=== PATIENT | female | born 1960 | race Caucasian/White ===

== ENCOUNTER 2024-08-29 04:22 | Day surgery (SDC) | payer OTHER ==
[2024-08-26 13:19] VITALS: BMI 25.5
[2024-08-29] MEDS ORDERED: MIDAZOLAM HCL 2 MG/2 ML SINGLE DOSE VIAL ONE (07:14)
[2024-08-29] MEDS ORDERED: PROPOFOL 20 ML ONE (07:14)
[2024-08-29] MEDS ORDERED: oxyCODONE HCL 5 MG TABLET PO PRN (07:25)
[2024-08-29] MEDS ORDERED: ONDANSETRON 4 MG/2 ML VIAL IVPUSH PRN (07:25)
[2024-08-29] MEDS ORDERED: ACETAMINOPHEN 325 MG TABLET (FP) PO PRN (07:25)
[2024-08-29] MEDS ORDERED: LACTATED RINGERS SOLUTION 1,000 ML IV SCH (07:30)
[2024-08-29] MEDS: ceFAZolin SODIUM 1 GM VIAL IVPB ONE (08:39)
[2024-08-29] MEDS ORDERED: ACETAMINOPHEN INJECTION 100 ML ONE (10:05)
[2024-08-29] MEDS: ACETAMINOPHEN 1000 MG/100 ML BAG IVPB ONE (10:05)
[2024-08-29 12:51] VITALS: RESP 18
[2024-08-29 13:15] VITALS: BP 109/61; PULSE 75; TEMP 97.3
== END 2024-08-29 13:20 | disposition home or self-care (01) ==
LOC: JASU-SURG 04:22
PROVIDERS: ATTEND Obstetrics & Gynecology
PROC: 0UB98ZZ Excision of Uterus, Via Natural or Artificial Opening Endoscopic (ICD-10-PCS; principal; 2024-08-29 08:00)
DX: N84.0 Polyp of corpus uteri (principal); Z85.3 Personal history of malignant neoplasm of breast; Z79.899 Other long term (current) drug therapy; D26.1 Other benign neoplasm of corpus uteri
CPT/HCPCS: 76998-TC; 86850; 86900; 86901; 88305-TC; 94760; J0131